=== PATIENT | male | born 1935 | race Caucasian/White ===

== ENCOUNTER 2017-05-14 07:50 | Emergency (ER) | payer MEDICARE, OTHER ==
[2017-05-14] MEDS ORDERED: IV NORMAL SALINE 1,000ML 1,000 ML IV SCH (08:02)
[2017-05-14] MEDS ORDERED: NOREPINEPHRINE BITARTRATE 4 MG/4 ML VIAL. IV ONE (08:05)
[2017-05-14] MEDS ORDERED: NOREPINEPHRINE BITARTRATE 8 MG in IV NORMAL SALINE 250ML 250 ML IV PRN (08:15)
--- NOTE | 2017-05-14 08:38 | PHYS DOC ---
General Chief Complaint: MECHANICAL FALL Stated Complaint: NA Time Seen by MD: 07:55 Source: patient, family (spouse) Exam Limitations: clinical condition Problems: History of Present Illness Initial Comments Patient is an 81-year-old male brought to the ED by EMS with report of fall and altered mental status. The patient's spouse is at bedside, she states that she is observed the patient' s light in his bedroom to be off at 6:15 AM. When she walked back by his bedroom the light on his nightstand had been turned on and she observed the patient to be slumped over by the side of the bed as if he may have slid off the bed. She did insist that the patient must have fallen between 6:15 and 6:30 when she noticed the like to be on and actually found the patient to be down. She did not hear any tumble or noises consistent with a traumatic fall. She did not visualize any injuries but the patient was not making sense when she would speak to him so she called EMS. On arrival EMS reports that the patient did complain of some neck discomfort so collar was placed in the field. They report that the patient was alert to name only and appeared to be somewhat drowsy. Patient's spouse reports that the patient is normally alert and oriented 3 ambulatory with walker sepsis fall and neural status with some newly diagnosed dementia. Patient was seen by his doctor a few days ago and due to described symptoms was put on Cipro for presumed diverticulitis. Spouse states that the patient has had diarrhea since his first surgery last March she denies seeing blood in it. Patient had left total knee replacement this past March 13 and subsequent left patellar tendon repair April of this year. He has history of three- vessel CABG in 2011 and a questionable history of irregular heartbeat or atrial fibrillation but takes no anticoagulation. On my primary survey the patient does not appear to be fluid overloaded but dry , blood pressure trending down 60s over 40s is currently on Levaquin drip and a normal saline IV bolus 1 L running current blood pressure 75/27. Timing/Duration: other Severity: severe Modifying Factors: improves with other Associated Symptoms: other Allergies: Coded Allergies: Penicillins (Verified Allergy, Unknown, 05/14/17) Past Medical History Medical History: other (hypertension, coronary artery disease, hyperlipidemia, GERD, dementia, atrial fibrillation) Surgical History: coronary bypass surgery (three-vessel 2012) Social History Smoker: non-smoker Alcohol: none Drugs: none Review of Systems All Other Systems: Reviewed and Negative (poor historian review of systems as per history of present illness) Physical Exam General Appearance: no apparent distress Eyes: bilateral eye normal inspection, bilateral eye PERRL, bilateral eye EOMI Ear, Nose, Throat: hearing grossly normal, normal ENT inspection, normal pharynx Neck: other (c-collar in place) Respiratory: chest non-tender, no respiratory distress (on O2 ), other (coarse b/l with good air movement) Cardiovascular: normal peripheral pulses, tachycardia, irregularly irregular Gastrointestinal: soft (RUQ TTP w/guard no adriano, BS diminished, ) Back: no CVA tenderness, no vertebral tenderness Extremities: normal inspection (L knee swelling appropriately post op), no pedal edema Neurologic/Psychiatric: security nurse II-XII nml as tested, no motor/sensory deficits, alert, oriented x 3 (disoriented initially now a/o x 3) Skin: normal color, warm/dry Orders, Labs, Meds EKG: A. fib with RVR rate 145 bpm interpreted by me. 0848: Heart rate appears to be responding to IV hydration bouncing between 118 and 120s, currently on Levophed at 5 mics blood pressure 96/85 showing improvement as well. 0855: A critical troponin value called from the lab, 0.077. Given patient's tachycardia could be demand related I will need to contact patient's tractor mechanic apprentice but will wait to do so until CT head evaluation completed to determine that there is no intracranial bleed. 0923: Another critical lab called lactic acid 4.6. This in conjunction with tachycardia hypotension and the probability of intra-abdominal infection points toward sepsis. I discussed these issues with the patient's spouse and she states that she feels the last few days the patient's lower abdomen has been "puffy." White blood cells 17,000 and differential is pending vancomycin now ordered as well as CT chest abdomen and pelvis without contrast as chemistry panel specimen hemolyzed and no renal function is back yet. 1019: Patient rechecked, he is on a second liter of normal saline IV bolus and Levothroid currently at 11 mics his heart rate is 124 blood pressure 104/64 satting 99% on 4 L O2 nasal cannula we'll begin weaning. I discussed the need for inpatient treatment with the patient and his spouse fair requesting [facility]. The patient is now much more alert and awake he remembers falling this morning trying to get out of bed to go to the restroom. He intended to use his walker and says he just "fainted." He denies any injuries resulting from the fall denies any chest pain shortness of breath and is very ready to get off the c-collar. 1027: I discussed the patient with operations support specialist hospitalist Dr. Geiger. Patient's tractor mechanic apprentice is at [facility] however they say all his surgeries have been at [place] and the family specifically requests [facility]. After thorough discussion of the patient's history, presentation, and ED findings Dr. Geiger does accept the patient for ICU admission understanding that CT of the head cervical spine as well as chest abdomen pelvis are pending. During his ED course the patient received 2 L normal saline IV boluses as well as vancomycin/Levaquin intravenously. No anticoagulation has been given as CT head pending. Impressions: Sepsis Acute Cholecystitis UTI A. fib with RVR rate improving with hydration Altered mental status Fall injury Syncope Elevated creatine kinase early rhabdomyolysis Respiratory distress Hypovolemia Renal insufficiency Elevated troponin demand ischemia versus other Moderate to severe protein malnutrition Mesenteric mass behavior uncertain Right lower lobe infiltrate 2 recent surgeries L knee with tachycardia may need V/Q to rule out PE PATIENT: BUD AGGARWAL ACCOUNT: [id number] : 1935 LOCATION: ER AGE: 81 SEX: M EXAM STATUS: REG ER ORD. PHYSICIAN: REGIS ORLANDO DO REASON: ams PROCEDURE: CT HEAD AND CERVICAL SPINE WO Indication: Pain after fall out of bed today Technique: Noncontrast CT head was obtained. CT cervical spine includes axial images and coronal and sagittal reformatted images. No comparison is available. One or more of the following individualized dose reduction techniques were utilized for this examination: 1. Automated exposure control 2. Adjustment of the mA and/or kV according to patient size 3. Use of iterative reconstruction technique Findings: Head: There is prominence of the ventricles and sulci. There are areas of mild probable small vessel ischemic disease. There is no acute intracranial hemorrhage or extra-axial fluid collection. There is no mass effect or midline shift. Armendariz-white differentiation is preserved. There is no depressed skull fracture. There are vascular calcifications. The included paranasal sinuses and mastoid air cells are clear. Cervical spine: There is reversal of cervical lordosis centered at C5. There is no subluxation. C3 and C4 appear fused, may be degenerative. There is no fracture. There is no traumatic malalignment. Prevertebral soft tissues are within normal limits. Craniovertebral junction is within normal limits. Degenerative findings will be estimated below, would be better evaluated by MRI or postmyelogram CT: C2-C3: There is uncinate process spurring and there is facet hypertrophy which is much greater on the left. There is left foraminal narrowing. There is buckling of ligamentum flavum and may be mild canal stenosis. C3-C4: There is uncinate process spurring and endplate irregularity but no canal stenosis. There may be mild to moderate foraminal narrowing. C4-C5: There is a disc osteophyte complex and uncinate process spurring. There is facet hypertrophy. There is no definite canal stenosis, there is probably moderate bilateral foraminal narrowing. C5-C6: There is a disc osteophyte complex and uncinate process spurring without canal stenosis. There is high-grade bilateral foraminal narrowing. C6-C7: There is a disc osteophyte complex and uncinate process spurring. There is at least mild bilateral foraminal narrowing. C7-T1: There is facet hypertrophy and there may be mild right foraminal narrowing. There are carotid artery calcifications. Lung apices are clear, there is streak artifact limiting evaluation of the lung apices. IMPRESSION: Head: 1. No acute intracranial findings. 2. Brain parenchymal volume loss and mild probable small vessel ischemic disease Cervical spine: 1. No evidence of a fracture or traumatic malalignment. 2. Multilevel degenerative changes with several levels of foraminal narrowing suspected. Electronically signed by: Evan Maciel MD (05/14/2017 11:05 AM) [id number] DICTATED AND SIGNED BY: EVAN MACIEL MD DATE: 05/14/17 1057 CC: PCP,NO; REGIS ORLANDO DO ~ PATIENT: BUD AGGARWAL ACCOUNT: [id number] : 1935 LOCATION: ER AGE: 81 SEX: M EXAM STATUS: REG ER ORD. PHYSICIAN: REGIS ORLANDO DO REASON: sepsis, recent abd pain PCP tx diverticulitis PROCEDURE: CT CHEST ABDOMEN PELVIS WO PQRS Compliance Statement: One or more of the following individualized dose reduction techniques were utilized for this examination: 1. Automated exposure control 2. Adjustment of the mA and/or kV according to patient size 3. Use of iterative reconstruction technique CT CHEST ABDOMEN PELVIS WO Clinical Indication: fall from bed today, abnormal labs Comparison: None. Technique: Helical CT imaging of the chest, abdomen and pelvis is performed without IV or oral contrast. Findings: In the setting of trauma, sensitivity for detection of pathology is significantly decreased without IV contrast. Artifact from bilateral shoulder arthroplasties limits evaluation of supraclavicular region. There are median sternotomy wires. Coronary artery disease and changes of CABG. Calcific aortic valve stenosis. Calcified left hilar and subcarinal lymph nodes. No mediastinal hematoma. Great vessels normal caliber. Cardiac size normal, no pericardial effusion. Small right pleural effusion. No pneumothorax. Moderate-sized hiatal hernia. Moderate consolidation in the right lower lobe. Gallbladder is distended, thick-walled, and contains multiple tiny stones. There is pericholecystic fluid. Calcified granulomas in the liver and spleen. Atherosclerotic abdominal aorta. Small fat-containing umbilical hernia. There is a soft tissue density and calcified mass in the central mesentery. The mass measures about 2.8 cm AP by 4.2 cm transverse by 5.4 cm craniocaudal. There is beam hardening artifact from left hip arthroplasty that limits evaluation of the pelvis. Sigmoid colon diverticulosis without inflammation. The appendix is normal. Urinary bladder is decompressed. Radioactive seeds in the prostate. No pelvic free fluid. S-shaped thoracolumbar scoliosis. No acute bone abnormality is seen. IMPRESSION: 1. No acute traumatic injury in the chest abdomen or pelvis. 2. Gallbladder is distended, thick-walled and contains multiple tiny stones. There is pericholecystic fluid. Findings suspicious for cholecystitis. 3. Small right pleural effusion. 4. Moderate consolidation in the right lower lobe may be atelectasis, pneumonia, or aspiration. 5. There is a partially calcified mass in the central mesentery. Differential considerations include carcinoid, sclerosing mesenteritis, treated lymphoma, or metastasis. 6. Distal colon diverticulosis without diverticulitis. Electronically signed by: Ac Quinteros MD (05/14/2017 11:28 AM) [id number] DICTATED AND SIGNED BY: AC QUINTEROS MD DATE: 05/14/17 1114 CC: PCP,NO; REGIS ORLANDO DO ~ PATIENT: BUD AGGARWAL ACCOUNT: [id number] : 1935 LOCATION: ER AGE: 81 SEX: M EXAM STATUS: REG ER ORD. PHYSICIAN: REGIS ORLANDO DO REASON: sepsis, recent abd pain PCP tx diverticulitis PROCEDURE: CT CHEST ABDOMEN PELVIS WO PQRS Compliance Statement: One or more of the following individualized dose reduction techniques were utilized for this examination: 1. Automated exposure control 2. Adjustment of the mA and/or kV according to patient size 3. Use of iterative reconstruction technique CT CHEST ABDOMEN PELVIS WO Clinical Indication: fall from bed today, abnormal labs Comparison: None. Technique: Helical CT imaging of the chest, abdomen and pelvis is performed without IV or oral contrast. Findings: In the setting of trauma, sensitivity for detection of pathology is significantly decreased without IV contrast. Artifact from bilateral shoulder arthroplasties limits evaluation of supraclavicular region. There are median sternotomy wires. Coronary artery disease and changes of CABG. Calcific aortic valve stenosis. Calcified left hilar and subcarinal lymph nodes. No mediastinal hematoma. Great vessels normal caliber. Cardiac size normal, no pericardial effusion. Small right pleural effusion. No pneumothorax. Moderate-sized hiatal hernia. Moderate consolidation in the right lower lobe. Gallbladder is distended, thick-walled, and contains multiple tiny stones. There is pericholecystic fluid. Calcified granulomas in the liver and spleen. Atherosclerotic abdominal aorta. Small fat-containing umbilical hernia. There is a soft tissue density and calcified mass in the central mesentery. The mass measures about 2.8 cm AP by 4.2 cm transverse by 5.4 cm craniocaudal. There is beam hardening artifact from left hip arthroplasty that limits evaluation of the pelvis. Sigmoid colon diverticulosis without inflammation. The appendix is normal. Urinary bladder is decompressed. Radioactive seeds in the prostate. No pelvic free fluid. S-shaped thoracolumbar scoliosis. No acute bone abnormality is seen. IMPRESSION: 1. No acute traumatic injury in the chest abdomen or pelvis. 2. Gallbladder is distended, thick-walled and contains multiple tiny stones. There is pericholecystic fluid. Findings suspicious for cholecystitis. 3. Small right pleural effusion. 4. Moderate consolidation in the right lower lobe may be atelectasis, pneumonia, or aspiration. 5. There is a partially calcified mass in the central mesentery. Differential considerations include carcinoid, sclerosing mesenteritis, treated lymphoma, or metastasis. 6. Distal colon diverticulosis without diverticulitis. Electronically signed by: Ac Quinteros MD (05/14/2017 11:28 AM) [id number] DICTATED AND SIGNED BY: AC QUINTEROS MD DATE: 05/14/17 1114 CC: PCP,NO; REGIS ORLANDO DO ~ 1145: I discussed the patient with on-call general surgeon Dr. Pal, he requests the patient be transferred to [facility] and admitted to the hospitalist. Departure Time of Disposition: 10:36 Disposition: 02 XFER SHT-TRM HOSP Condition: IMPROVED Critical Care Note Total Time (mins): 90 Comments Directly visualizing and overseeing hemodynamic stabilization of the patient, ordering and interpreting testing, discussions with multiple specialists and arrangement of difficult transfer due to bed availability. REGIS ORLANDO DO May 14, 2017 08:38
[2017-05-14 08:46] LABS: BASO % 0 % (0-3); EOS % 0 % (0-3); HEMATOCRIT 36.4 % (39.0-53.0); HEMOGLOBIN 11.8 g/dL (13.0-17.5); LYMPH # 0.4 x10^3/uL (1.0-4.8); LYMPH % 3 % (24-48); MEAN CORPUSCULAR HEMOGLOBIN 31 pg (25-35); MEAN CORPUSCULAR HGB CONC 32 g/dL (31-37); MEAN CORPUSCULAR VOLUME 96 fL (79-100); MONO # 1.1 x10^3/uL (0.0-1.1); MONO % 6 % (0-9); NEUT # 15.5 x10^3uL (1.8-7.7); NEUT % 91 % (31-73); PLATELET COUNT 137 x10^3/uL (140-400); RED BLOOD COUNT 3.77 x10^6/uL (4.30-5.70); RED CELL DISTRIBUTION WIDTH 14.4 % (11.5-14.5)
[2017-05-14] MEDS ORDERED: VANCOMYCIN PER PHARMACY MC PRN (09:15)
[2017-05-14 09:26] LABS: ALBUMIN/GLOBULIN RATIO 0.7 (1.0-1.7); C REACTIVE PROTEIN 234.6 mg/L (0-3.3); CREATININE 1.6 mg/dL (0.7-1.3); GFR 41.7; POTASSIUM 3.7 mmol/L (3.5-5.1); TOTAL BILIRUBIN 0.8 mg/dL (0.2-1.0); TOTAL PROTEIN 4.9 g/dL (6.4-8.2)
[2017-05-14 09:54] LABS: SEDIMENTATION RATE 79 (0-15)
[2017-05-14] MEDS ORDERED: IV NORMAL SALINE 1,000ML 1,000 ML IV ONE (10:00)
[2017-05-14] MEDS ORDERED: VANCOMYCIN 1.75 GM in IV NORMAL SALINE 500ML 500 ML IV ONE (10:00)
[2017-05-14 10:08] LABS: % BANDS 1 % (0-9); % LYMPHS 1 % (24-48); % MONOS 4 % (0-10); % SEGS 94 % (35-66); PLATELET CLUMP PRESENT; PLT ESTIMATE ADEQUATE (ADEQUATE)
[2017-05-14 10:09] LABS: TOXIC GRANULATION SLIGHT
[2017-05-14 10:21] LABS: BACTERIA,URINE FEW /HPF (0-FEW); BILIRUBIN,URINE SMALL (NEG); CLARITY,URINE CLOUDY; COLOR,URINE AMBER; GLUCOSE,URINE NEG (NEG); NITRITE,URINE POS (NEG); SQUAMOUS EPITHELIAL CELL,UR FEW /LPF; UROBILINOGEN,URINE 0.2 mg/dL (0.2 mg/dL); WBC,URINE OCC /HPF (0-4)
[2017-05-14 10:22] LABS: AMORPHOUS SEDIMENT,UR PRESENT /HPF; HYALINE CASTS, URINE MOD /HPF
--- NOTE | 2017-05-14 11:00 | RAD ---
INDICATION: Short of air. TECHNIQUE: Upright portable chest radiograph was obtained. No comparison is available. FINDINGS: There is elevation of the right hemidiaphragm. There is no airspace disease. The heart is not enlarged and there is no heart failure. There is minimal atheromatous disease in the thoracic aorta. There appears to be a large hiatal hernia. Median sternotomy wires are noted. There are degenerative changes in the shoulders. Leads overlie the patient. IMPRESSION: 1. No acute thoracic findings. 2. Hiatal hernia. Electronically signed by: Evan Maciel MD (05/14/2017 10:57 AM) [facility]
--- NOTE | 2017-05-14 11:09 | RAD ---
Indication: Pain after fall out of bed today Technique: Noncontrast CT head was obtained. CT cervical spine includes axial images and coronal and sagittal reformatted images. No comparison is available. One or more of the following individualized dose reduction techniques were utilized for this examination: 1. Automated exposure control 2. Adjustment of the mA and/or kV according to patient size 3. Use of iterative reconstruction technique Findings: Head: There is prominence of the ventricles and sulci. There are areas of mild probable small vessel ischemic disease. There is no acute intracranial hemorrhage or extra-axial fluid collection. There is no mass effect or midline shift. Armendariz-white differentiation is preserved. There is no depressed skull fracture. There are vascular calcifications. The included paranasal sinuses and mastoid air cells are clear. Cervical spine: There is reversal of cervical lordosis centered at C5. There is no subluxation. C3 and C4 appear fused, may be degenerative. There is no fracture. There is no traumatic malalignment. Prevertebral soft tissues are within normal limits. Craniovertebral junction is within normal limits. Degenerative findings will be estimated below, would be better evaluated by MRI or postmyelogram CT: C2-C3: There is uncinate process spurring and there is facet hypertrophy which is much greater on the left. There is left foraminal narrowing. There is buckling of ligamentum flavum and may be mild canal stenosis. C3-C4: There is uncinate process spurring and endplate irregularity but no canal stenosis. There may be mild to moderate foraminal narrowing. C4-C5: There is a disc osteophyte complex and uncinate process spurring. There is facet hypertrophy. There is no definite canal stenosis, there is probably moderate bilateral foraminal narrowing. C5-C6: There is a disc osteophyte complex and uncinate process spurring without canal stenosis. There is high-grade bilateral foraminal narrowing. C6-C7: There is a disc osteophyte complex and uncinate process spurring. There is at least mild bilateral foraminal narrowing. C7-T1: There is facet hypertrophy and there may be mild right foraminal narrowing. There are carotid artery calcifications. Lung apices are clear, there is streak artifact limiting evaluation of the lung apices. IMPRESSION: Head: 1. No acute intracranial findings. 2. Brain parenchymal volume loss and mild probable small vessel ischemic disease Cervical spine: 1. No evidence of a fracture or traumatic malalignment. 2. Multilevel degenerative changes with several levels of foraminal narrowing suspected. Electronically signed by: Evan Maciel MD (05/14/2017 11:05 AM) [facility]
--- NOTE | 2017-05-14 11:32 | RAD ---
PQRS Compliance Statement: One or more of the following individualized dose reduction techniques were utilized for this examination: 1. Automated exposure control 2. Adjustment of the mA and/or kV according to patient size 3. Use of iterative reconstruction technique CT CHEST ABDOMEN PELVIS WO Clinical Indication: fall from bed today, abnormal labs Comparison: None. Technique: Helical CT imaging of the chest, abdomen and pelvis is performed without IV or oral contrast. Findings: In the setting of trauma, sensitivity for detection of pathology is significantly decreased without IV contrast. Artifact from bilateral shoulder arthroplasties limits evaluation of supraclavicular region. There are median sternotomy wires. Coronary artery disease and changes of CABG. Calcific aortic valve stenosis. Calcified left hilar and subcarinal lymph nodes. No mediastinal hematoma. Great vessels normal caliber. Cardiac size normal, no pericardial effusion. Small right pleural effusion. No pneumothorax. Moderate-sized hiatal hernia. Moderate consolidation in the right lower lobe. Gallbladder is distended, thick-walled, and contains multiple tiny stones. There is pericholecystic fluid. Calcified granulomas in the liver and spleen. Atherosclerotic abdominal aorta. Small fat-containing umbilical hernia. There is a soft tissue density and calcified mass in the central mesentery. The mass measures about 2.8 cm AP by 4.2 cm transverse by 5.4 cm craniocaudal. There is beam hardening artifact from left hip arthroplasty that limits evaluation of the pelvis. Sigmoid colon diverticulosis without inflammation. The appendix is normal. Urinary bladder is decompressed. Radioactive seeds in the prostate. No pelvic free fluid. S-shaped thoracolumbar scoliosis. No acute bone abnormality is seen. IMPRESSION: 1. No acute traumatic injury in the chest abdomen or pelvis. 2. Gallbladder is distended, thick-walled and contains multiple tiny stones. There is pericholecystic fluid. Findings suspicious for cholecystitis. 3. Small right pleural effusion. 4. Moderate consolidation in the right lower lobe may be atelectasis, pneumonia, or aspiration. 5. There is a partially calcified mass in the central mesentery. Differential considerations include carcinoid, sclerosing mesenteritis, treated lymphoma, or metastasis. 6. Distal colon diverticulosis without diverticulitis. Electronically signed by: Ac Quinteros MD (05/14/2017 11:28 AM) [id number]
--- NOTE | 2017-05-14 12:00 | EKG ---
[address] [address] Test Date: 2017-05-14 Test Time: 08:03:53 Pat Name: BUD AGGARWAL Department: Room: Gender: M Web Site Administrator: PETRA : 1935 Requested By: REGIS ORLANDO Order Number: [id number] Reading MD: Gennaro Villar Measurements Intervals [place] Rate: 145 P: MA: QRS: 3 QRSD: 70 T: -137 QT: 232 QTc: 363 Interpretive Statements RAPID ATRIAL FIBRILLATION. LOW LIMB LEAD VOLTAGE QRS(T) CONTOUR ABNORMALITY CONSISTENT WITH ANTEROSEPTAL INFARCT AGE UNDETERMINED ABNORMAL ECG RI6.01 No previous ECG available for comparison Electronically Signed On 05-21-2017 10:58:03 WATER PROJECT MANAGER by Gennaro Villar
[2017-05-14 12:58] LABS: FECAL OB PT NEGATIVE (NEG)
--- NOTE | 2017-05-14 13:44 | EKG ---
[address] [address] Test Date: 2017-05-14 Test Time: 12:42:56 Pat Name: BUD AGGARWAL Department: Room: Gender: M Toolroom Machinist: PETRA : 1935 Requested By: REGIS ORLANDO Order Number: [id number] Reading MD: Gennaro Villar Measurements Intervals [place] Rate: 99 P: 54 CO: 174 QRS: -11 QRSD: 66 T: -100 QT: 324 QTc: 415 Interpretive Statements SINUS RHYTHM LEFTWARD AXIS LOW LIMB LEAD VOLTAGE QRS(T) CONTOUR ABNORMALITY CONSISTENT WITH ANTEROSEPTAL INFARCT AGE UNDETERMINED CONSISTENT WITH INFERIOR INFARCT PROBABLY OLD T ABNORMALITY IN ANTERIOR LEADS ABNORMAL ECG RI6.01 No previous ECG available for comparison Electronically Signed On 05-21-2017 11:02:21 POULTRY GRADER by Gennaro Villar
[2017-05-14 14:06] VITALS: BP 104/52
== END 2017-05-14 14:10 | disposition short-term general hospital (02) ==
LOC: ER 07:50
DX: A41.9 Sepsis, unspecified organism (principal); N39.0 Urinary tract infection, site not specified; I48.91 Unspecified atrial fibrillation; R41.82 Altered mental status, unspecified; R55 Syncope and collapse; M62.82 Rhabdomyolysis; R06.03 Acute respiratory distress; E43 Unspecified severe protein-calorie malnutrition; R91.8 Other nonspecific abnormal finding of lung field; E86.1 Hypovolemia; R74.8 Abnormal levels of other serum enzymes; R79.89 Other specified abnormal findings of blood chemistry; E78.5 Hyperlipidemia, unspecified; F03.90 Unspecified dementia, unspecified severity, without behavioral disturbance, psychotic disturbance, mood disturbance, and anxiety; I10 Essential (primary) hypertension; I25.10 Atherosclerotic heart disease of native coronary artery without angina pectoris; K21.9 Gastro-esophageal reflux disease without esophagitis; N28.9 Disorder of kidney and ureter, unspecified; Z95.1 Presence of aortocoronary bypass graft; Z88.0 Allergy status to penicillin; W06.XXXA Fall from bed, initial encounter; Y93.89 Activity, other specified; Y99.8 Other external cause status; Y92.89 Other specified places as the place of occurrence of the external cause
CPT/HCPCS: 36415; 51702; 70450; 71045; 71250; 72125; 74176; 80053; 81001; 82140; 82274; 82550; 83605; 83690; 83880; 84484; 85007; 85025; 85610; 85651; 85730; 86140; 87040; 87086; 87324; 93005; 96365; 96366; 96367; 99291; 99292; J1956; J3370; J7040; J7050; J7030